=== PATIENT | male | born 1955 | race Caucasian/White ===

== ENCOUNTER 2018-07-11 07:55 | Outpatient (CLI) | payer OTHER | END 2018-07-11 08:12 | disposition home or self-care (01) | LOC: SONOGRAMA 07:55 → MAMO-SONO 08:15 | DX: Z13.1 Encounter for screening for diabetes mellitus (principal); Z12.5 Encounter for screening for malignant neoplasm of prostate; Z12.11 Encounter for screening for malignant neoplasm of colon; F17.208 Nicotine dependence, unspecified, with other nicotine-induced disorders; F10.188 Alcohol abuse with other alcohol-induced disorder ==